=== PATIENT | male | born 1945 | race Caucasian/White ===

== ENCOUNTER 2023-07-04 09:15 | Inpatient (IN) | payer OTHER ==
[~2023-07-04] VITALS: Ht 182.9 cm; Wt 92.3 kg
[2023-07-04] MEDS: hydroCHLOROthiazide 12.5 MG CAPSULE PO SCH (09:00)
[~2023-07-04 09:15] MED LIST: AMLO10TA PO; CHEL100T4 PO; CREO3600 PO; ECOT81TA5 PO; GLUC1AUT SQ; HYDR12.55 PO; LOSA100T46 PO; NOVOINJ SC; THERTAB52 PO; TRES1INJ SC; VITA100093 PO
[2023-07-04] MEDS: LR 1,000 ML IV SCH ×2 (10:05→16:15)
[2023-07-04] MEDS ORDERED: ONDANSETRON 4MG 2ML VIAL As Ordered ONE (12:11)
[2023-07-04] MEDS ORDERED: LIDOCAINE 2% INJ 100 MG/5 ML SYRINGE As Ordered ONE (12:11)
[2023-07-04] MEDS ORDERED: ROCURONIUM BROMIDE 50MG/5ML VIAL As Ordered ONE (12:11)
[2023-07-04] MEDS ORDERED: propofoL 200 MG/20 ML VIAL As Ordered ONE (12:11)
[2023-07-04] MEDS ORDERED: METOCLOPRAMIDE INJ 10MG/2ML VIAL As Ordered ONE (12:11)
[2023-07-04] MEDS ORDERED: fentaNYL 250 MCG/5 ML INJECTION As Ordered ONE (12:12)
[2023-07-04] MEDS ORDERED: GLUCAGON INJ 1MG VIAL SC PRN (12:45)
[2023-07-04] MEDS ORDERED: PERCOCET 5MG/325MG TAB PO PRN ×2 (12:45)
[2023-07-04] MEDS ORDERED: DEXTROSE 50% 50ML SYRINGE IV PRN (12:45)
[2023-07-04] MEDS ORDERED: GLUCOSE 4 GM CHEW PO PRN (12:45)
[2023-07-04] MEDS ORDERED: NS 1,000 ML IV SCH (12:45)
[2023-07-04] MEDS ORDERED: ONDANSETRON 4MG 2ML VIAL IV PRN ×2 (12:45→16:15)
[2023-07-04] MEDS: HEPARIN SOD (PORCINE) 5000UNITS/ML 1ML VIAL/SYRINGE SQ ONE (13:00)
[2023-07-04] MEDS: ceFAZolin SOD 2 GM in IV 1 EA IV ONE (13:00)
[2023-07-04] MEDS ORDERED: SUGAMMADEX SODIUM 500 MG/5 ML VIAL (BRIDION) As Ordered ONE (15:10)
[2023-07-04] MEDS ORDERED: KETOROLAC 60MG 2ML VIAL As Ordered ONE (15:41)
[2023-07-04] MEDS ORDERED: ACETAMINOPHEN 1000MG 100ML IV BAG As Ordered ONE (15:41)
[2023-07-04] MEDS: LIDOCAINE 1% SDV 30ML VIAL As Ordered ONE (16:00)
[2023-07-04] MEDS ORDERED: fentaNYL 100 MCG/2 ML INJECTION IV PRN (16:15)
[2023-07-04] MEDS ORDERED: oxyCODONE 5MG TAB PO PRN (16:15)
[2023-07-04] MEDS ORDERED: HYDROMORPHONE HCL 0.5 MG/ 0.5 ML SYRINGE IV PRN (16:15)
[2023-07-04 16:55] LABS: HEMATOCRIT 39.8 % (42.0-52.0); HEMOGLOBIN 14.4 g/dl (13.5-17.5); MEAN CORPUSCULAR HEMOGLOBIN 32.7 pg (27.0-33.0); MEAN CORPUSCULAR HGB CONC 36.2 g/dl (32.0-36.5); MEAN CORPUSCULAR VOLUME 90.5 fl (80.0-96.0); PLATELET COUNT, AUTOMATED 190 10^3/uL (150-450); WHITE BLOOD COUNT 13.4 10^3/uL (4.0-10.0)
[2023-07-04 17:10] LABS: CREATININE FOR GFR 1.44 MG/DL (0.70-1.30); GLOMERULAR FILTRATION RATE 50.5 (>42); POTASSIUM SERUM 3.5 MMOL/L (3.5-5.1)
[2023-07-04] MEDS: INSULIN LISPRO (NovoLOG) PER UNIT SC SCH ×2 (17:30→20:34)
[2023-07-04 17:45] VITALS: BP 111/60; TEMP 97; O2SAT 94
[2023-07-04 18:15] VITALS: BP 111/61; TEMP 97.5; O2SAT 91
[2023-07-04 19:31] VITALS: BP 110/61; TEMP 97.7; O2SAT 93
[2023-07-04] MEDS ORDERED: HOME MED LIST COMPLETE! XX SCH (20:30)
[2023-07-04] MEDS: DOCUSATE SODIUM 100MG CAPSULE PO SCH (20:36)
[2023-07-04] MEDS: ceFAZolin SOD 1 GM in D5W MINI-BAG PLUS 50 ML IV SCH (20:36)
[2023-07-04] MEDS: HEPARIN SOD (PORCINE) 5000UNITS/ML 1ML VIAL/SYRINGE SC SCH (21:00)
[2023-07-04 22:02] VITALS: BP 119/61; TEMP 97.7; O2SAT 92
[2023-07-05 02:28] VITALS: BP 136/64; TEMP 97.9; O2SAT 94
[2023-07-05 05:53] VITALS: BP 133/63; TEMP 97.9; O2SAT 93
[2023-07-05 07:26] LABS: HEMATOCRIT 36.9 % (42.0-52.0); HEMOGLOBIN 13.4 g/dl (13.5-17.5); MEAN CORPUSCULAR HEMOGLOBIN 33.3 pg (27.0-33.0); MEAN CORPUSCULAR HGB CONC 36.3 g/dl (32.0-36.5); MEAN CORPUSCULAR VOLUME 91.8 fl (80.0-96.0); PLATELET COUNT, AUTOMATED 167 10^3/uL (150-450); RED BLOOD COUNT 4.02 10^6/uL (4.30-6.10); WHITE BLOOD COUNT 11.1 10^3/uL (4.0-10.0)
[2023-07-05 07:53] LABS: CALCIUM LEVEL 7.9 MG/DL (8.3-10.6); CREATININE FOR GFR 1.5 MG/DL (0.70-1.30); GLOMERULAR FILTRATION RATE 48.2 (>42); POTASSIUM SERUM 3.7 MMOL/L (3.5-5.1)
[2023-07-05] MEDS ORDERED: ENTER DRUG NAME HERE (PATIENT'S OWN MED) PO SCH (08:00)
[2023-07-05] MEDS: CREON-12 CAPSULE PO SCH (08:13)
[2023-07-05 08:14] VITALS: BP 129/63
[2023-07-05] MEDS: LOSARTAN 50MG TABLET PO SCH (08:14)
[2023-07-05] MEDS: ACETAMINOPHEN TAB 650MG DOSE (2X325MG) PO PRN (08:34)
[2023-07-05] MEDS: NS 1,000 ML IV SCH (08:34)
[2023-07-05 10:00] VITALS: BP 130/62; TEMP 97.9; O2SAT 93
[2023-07-05] MEDS ORDERED: COLA100C5 PO (13:14)
[2023-07-05] MEDS ORDERED: PERCOCET PO (13:14)
[2023-07-05] MEDS ORDERED: CIPR-249 PO (13:14)
[2023-07-05 14:00] VITALS: BP 128/63; TEMP 97.9; O2SAT 95
== END 2023-07-05 15:10 | disposition home or self-care (01) | DRG 708 ==
LOC: M OR 09:15 → M MS5PR 17:45
PROVIDERS: ADMIT Urology; ATTEND Urology
PROC: 8E0W4CZ Robotic Assisted Procedure of Trunk Region, Percutaneous Endoscopic Approach (ICD-10-PCS; 2023-07-04)
PROC: 0VT04ZZ Resection of Prostate, Percutaneous Endoscopic Approach (ICD-10-PCS; principal; 2023-07-04 11:30)
DX: C61 Malignant neoplasm of prostate (principal); E11.9 Type 2 diabetes mellitus without complications; Z79.4 Long term (current) use of insulin; Z79.82 Long term (current) use of aspirin; Z79.899 Other long term (current) drug therapy